=== PATIENT | female | born 1975 | race Caucasian/White ===

== ENCOUNTER → 2018-05-19 | Outpatient (CLI) | payer BC ==
[2018-05-21 14:09] LABS: HPV 16 Negative (Negative); HPV 18 Negative (Negative); HPV OTHER HR TYPES Positive (Negative)
== END ==
LOC: LAB 13:30 → LAB SHORT 13:30
PROVIDERS: Registered Nurse Community Health
DX: Z01.419 Encounter for gynecological examination (general) (routine) without abnormal findings (principal)
CPT/HCPCS: 87624; 87625; G0123

== ENCOUNTER → 2019-05-08 | Outpatient (CLI) | payer OTHER ==
[2019-06-09 13:34] LABS: TEST ORDERED: PAP WITH HPV
== END | disposition home or self-care (01) ==
LOC: LAB SHORT 12:00 → LAB 12:00
PROVIDERS: Family Medicine
DX: Z01.419 Encounter for gynecological examination (general) (routine) without abnormal findings (principal)
CPT/HCPCS: 87624; G0145

== ENCOUNTER → 2019-05-15 | Outpatient (CLI) | payer OTHER | END | disposition home or self-care (01) | LOC: PLD 07:28 → LAB SHORT 07:28 | DX: D22.5 Melanocytic nevi of trunk (principal) | CPT/HCPCS: 88305 ==

== ENCOUNTER → 2020-01-19 | Outpatient (CLI) | payer OTHER | END | disposition home or self-care (01) | LOC: LAB SHORT 08:42 → LAB 08:42 | DX: K52.9 Noninfective gastroenteritis and colitis, unspecified (principal) | CPT/HCPCS: 82656 ==

== ENCOUNTER 2020-08-29 06:00 | Day surgery (SDC) | payer OTHER ==
[~2020-08-29] VITALS: Ht 167.6 cm; Wt 61.6 kg
[~2020-08-29 06:00] MED LIST: DICY20 PO
[2020-08-29] MEDS ORDERED: ASCO500 PO (06:34)
[2020-08-29] MEDS ORDERED: ERGO400 PO (06:34)
--- NOTE | 2020-08-29 07:06 | NUR ---
Ambulatory in Day Surgery History, Chart, Medications and Allergies reviewed before start of procedure. Lungs clear T/O to Auscultation. Patient confirms NPO status and agrees with scheduled surgery. NEGATIVE. PRE-OP BREATHING TX COMPLETE.
--- NOTE | 2020-08-29 15:33 | NUR ---
ABREU CATH DC'D, PT AMBULATED TO THE BATHROOM, VOIDED 100CC PINK TINGED URINE, PVR 20CC, REPORTS PAIN IS TOLERABLE ON OXYCODONE, WILL ALLOW TO VOID AGAIN THEN RECHECK PVR.
[2020-08-29] MEDS ORDERED: ACET500 PO (17:31)
[2020-08-29] MEDS ORDERED: DOCU100 PO (17:32)
[2020-08-29] MEDS ORDERED: IBUP800 PO (17:32)
[2020-08-29] MEDS ORDERED: OXYC5 PO (17:35)
[2020-08-29] MEDS ORDERED: ONDA4ODT MM (17:36)
--- NOTE | 2020-08-29 18:45 | NUR ---
PT PASSED VOIDING TRIAL, LAST VOID 200ML, PVR 6ML VIA BLADDER SCAN, STATES PAIN IS TOLERABLE ON OXYCODONE, TOLERATING REGULAR DIET WELL, AMBULATING WITHOUT DIFFICULTY, DC'D HOME, DC INSTRUCTIONS GIVEN, VERBALIZED UNDERSTANDING, IV DC'D, CATH INTACT.
== END 2020-08-29 18:00 | disposition home or self-care (01) ==
LOC: ORSCMMR 06:00 → ORD 07:30 → ORSCMMR 07:30 → SURS 10:14 → ORSCMMR 18:00
PROVIDERS: Obstetrics & Gynecology
PROC: 0UT9FZZ Resection of Uterus, Via Natural or Artificial Opening With Percutaneous Endoscopic Assistance (ICD-10-PCS; principal; 2020-08-29 07:30)
PROC: 0UT7FZZ Resection of Bilateral Fallopian Tubes, Via Natural or Artificial Opening With Percutaneous Endoscopic Assistance (ICD-10-PCS; principal; 2020-08-29 07:30)
DX: D25.9 Leiomyoma of uterus, unspecified (principal); N94.6 Dysmenorrhea, unspecified; N80.0 Endometriosis of uterus; F17.210 Nicotine dependence, cigarettes, uncomplicated
CPT/HCPCS: 88307; A9270; J0171; J0690; J1100; J1885; J2250; J2405; J2704; J2710; J3010; J7120